=== PATIENT | male | born 1965 | race Caucasian/White ===

== ENCOUNTER 2018-02-11 15:14 | Emergency (ER) | payer MEDICARE, MEDICAID, SELFPAY ==
[2018-02-11 15:14] VITALS: BP 152/86; PULSE 91; RESP 16; TEMP 36.4; O2SAT 94; BMI 31.0
--- NOTE | 2018-02-11 15:17 | RAD_ITS ---
STUDY: X-RAY - RIGHT WRIST REASON FOR EXAM: Pain, injury. TECHNIQUE: 3 view(s) of the wrist were obtained. COMPARISON: None. FINDINGS: Normal visualized distal radius. There is an ossicle adjacent to the ulnar styloid process without demonstrated distal ulnar fracture. There is joint space narrowing of the radiocarpal compartment. Normal distal radioulnar articulation. Normal carpal bones. There is widening of the scapholunate interval and mild DISI deformity. Normal carpometacarpal articulation of the thumb. Normal second through fifth carpometacarpal articulations. Normal visualized metacarpal bones. The soft tissue structures are unremarkable. RAD/Wrist min 3 Views IMPRESSION: Widening of the scapholunate interval and mild DISI deformity suggestive of scapholunate ligament tear. Arthrosis of the radiocarpal compartment of the wrist. Small ossicle adjacent to the ulnar styloid process. No demonstrated recent fracture. Electronically Signed: Jake Wood MD at 16:29 EDT Tel , Service support ,
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
--- NOTE | 2018-02-11 15:17 | RAD_ITS ---
STUDY: X-RAY - RIGHT KNEE REASON FOR EXAM: Pain, injury. TECHNIQUE: 4 view(s) of the knee. COMPARISON: None. FINDINGS: Normal visualized distal femur. There is chronic fracture deformity of the lateral tibial plateau with intact orthopedic screws. Normal proximal tibiofibular articulation. Normal medial femorotibial compartment. There are marginal osteophytes with joint space narrowing of the lateral femorotibial compartment. There are marginal osteophytes without joint space narrowing of the patellofemoral articulation. There is a joint effusion. RAD/Knee 4 or More Views IMPRESSION: Chronic fracture deformity of the lateral tibial plateau with orthopedic hardware. Arthrosis of the lateral femorotibial compartment. Joint effusion. Electronically Signed: Jake Wood MD at 16:24 EDT Tel , Service support ,
[2018-02-11 16:06] VITALS: O2SAT 94
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
== END 2018-02-11 16:35 | disposition home or self-care (01) ==
PROVIDERS: Emergency Provider Emergency Medicine; Family Provider Student in an Organized Health Care Education/Training Program; PCP Student in an Organized Health Care Education/Training Program
DX: S20.212A Contusion of left front wall of thorax, initial encounter (principal); S60.211A Contusion of right wrist, initial encounter; S80.01XA Contusion of right knee, initial encounter; V19.9XXA Pedal cyclist (driver) (passenger) injured in unspecified traffic accident, initial encounter; Y93.55 Activity, bike riding; Y92.9 Unspecified place or not applicable; Y99.9 Unspecified external cause status; M54.9 Dorsalgia, unspecified; G89.29 Other chronic pain; R03.0 Elevated blood-pressure reading, without diagnosis of hypertension; Z72.0 Tobacco use; Z79.899 Other long term (current) drug therapy
CPT/HCPCS: 71101; 73110; 73564; 99282

== ENCOUNTER 2018-11-24 13:58 | Emergency (ER) | payer MEDICARE, MEDICAID, SELFPAY ==
[2018-11-24 13:59] VITALS: BP 160/76; PULSE 93; RESP 20; TEMP 36.8; O2SAT 96; BMI 27.2
--- NOTE | 2018-11-24 14:04 | RAD_ITS ---
STUDY: X-RAY - RIGHT KNEE REASON FOR EXAM: Male, 53 years old. Pain following a fall. TECHNIQUE: 5 view(s) of the knee. COMPARISON: Comparison is made with prior study dated February 11, 2018. FINDINGS: There is evidence of a nondisplaced fracture of the patella. Normal visualized distal femur. Prior screw fixation of the lateral tibial plateau fracture. Normal proximal tibiofibular articulation. There is moderate degenerative arthrosis of the medial femorotibial compartment with moderate joint space narrowing. There is moderate degenerative arthrosis of the lateral femorotibial compartment with moderate joint space narrowing. There is mild degenerative arthrosis of the patellofemoral articulation. Joint effusion. Soft tissue swelling. RAD/Knee 4 or More Views IMPRESSION: Nondisplaced patellar fracture. Joint effusion. Soft tissue swelling. Electronically Signed: Reinier Rodriguez MD at 15:24 EST , Service support ,
[2018-11-24] MEDS: HYDROcodone Bitartrate/Apap 5/325 Tablet PO (14:36)
--- NOTE | 2018-11-24 15:28 | ED.VISSUMM ---
- ER Visit Summary Date of Service: 11/24/18 Chief Complaint: [Injury to right knee] History of Present Illness: The patient is a 53 M [presents to the emergency department complaint of a fall and injury to his right knee that occurred yesterday. Patient states that he slipped on the ice. Patient fell directly onto the right knee. States that he is able to bear some weight. He denies any other injuries. Did not hit his head. No loss of consciousness. He denies any neck pain. Patient rates the pain is severe.] Physical Examination: [HEENT-PERRLA, EOMI. Cranial nerves II through XII grossly intact. TMs clear. Mucous membranes moist. No adenopathy. Cardiovascular-regular rate and rhythm without murmur or ectopy Lungs-clear to auscultation, chest wall stable without crepitus or subcu emphysema Abdomen-normoactive bowel sounds, soft, nontender, no rebound or rigidity, no peritoneal signs. Extremities-intact ?4, normal range of motion, normal pulses. Right knee-patient has diffuse soft tissue swelling and a joint effusion noted. Patient does have some faint bruising to the anterior aspect of the patella with tenderness to palpation over the patella. Ligamentous exam is very difficult given patient has a lot of discomfort and there is significant swelling noted. He is neurovascular intact distally with normal station normal cap refill.] Test Results: [X-rays of the right knee were obtained which showed a nondisplaced patella fracture. Patient had a joint effusion noted. Patient had soft tissue swelling noted.] Emergency Department Course and Treatment: [Patient on arrival was given [place] 1 tablet p.o. however he continued to complain of significant pain. Patient was given a milligram of Dilaudid IM.] Treatment Plan: [Patient will be given a knee immobilizer as well as crutches and referral to orthopedics on-call.] Patient will be given a prescription for Percocet for pain. Patient advised to ice and elevate the extremity. Disposition: Discharged home in stable condition] Impression: [Right patella fracture Mechanical fall] This note was generated with [employer] dictation software. It may contain incorrect words, spelling, and punctuation that were not noted in review of the chart prior to signing ED Disposition - Plan for ED Patient: Referrals: Francois Orellana DO [Primary Care Provider] -
--- NOTE | 2018-11-24 15:31 | ED.DEP ---
ED Disposition - Plan for ED Patient: Instructions: ED Fx Patella Prescriptions: Oxycodone HCl/Acetaminophen [Percocet 5/325] 1 tab PO Q6H PRN PRN 5 Days #20 tab PRN Reason: Pain Referrals: Francois Orellana DO [Primary Care Provider] - Bubba Wright DO [STAFF PHYSICIAN] - 3-5 Days
[2018-11-24] MEDS: HYDROmorphone 1 MG/ML Syringe IM (15:40)
[2018-11-24 16:20] VITALS: BP 119/83; PULSE 72; RESP 15; O2SAT 98
== END 2018-11-24 16:22 | disposition home or self-care (01) ==
LOC: ED 14:44
PROVIDERS: Emergency Provider Emergency Medicine; Family Provider Student in an Organized Health Care Education/Training Program; PCP Student in an Organized Health Care Education/Training Program
DX: S82.001A Unspecified fracture of right patella, initial encounter for closed fracture (principal); W00.0XXA Fall on same level due to ice and snow, initial encounter; Y93.9 Activity, unspecified; Y92.9 Unspecified place or not applicable; Y99.9 Unspecified external cause status; E11.9 Type 2 diabetes mellitus without complications; M10.9 Gout, unspecified; Z72.0 Tobacco use; Z79.84 Long term (current) use of oral hypoglycemic drugs; Z79.82 Long term (current) use of aspirin; Z79.891 Long term (current) use of opiate analgesic; Z79.899 Other long term (current) drug therapy
CPT/HCPCS: 73564; 96372; 99285

== ENCOUNTER 2018-11-28 00:35 | Emergency (ER) | payer MEDICARE, MEDICAID, SELFPAY ==
[2018-11-28 00:37] VITALS: BP 136/79; PULSE 87; RESP 16; TEMP 36.9; O2SAT 98; BMI 27.2
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
[2018-11-28] MEDS: oxyCODONE 5 MG Tablet PO (01:09)
[2018-11-28 01:10] VITALS: RESP 16
== END 2018-11-28 01:15 | disposition home or self-care (01) ==
LOC: ED 00:50
PROVIDERS: Emergency Provider Emergency Medicine; Family Provider Student in an Organized Health Care Education/Training Program; PCP Student in an Organized Health Care Education/Training Program
DX: S82.001A Unspecified fracture of right patella, initial encounter for closed fracture (principal); W19.XXXA Unspecified fall, initial encounter; Y93.9 Activity, unspecified; Y92.9 Unspecified place or not applicable; Y99.9 Unspecified external cause status; I10 Essential (primary) hypertension; Z72.0 Tobacco use; Z79.84 Long term (current) use of oral hypoglycemic drugs; Z79.82 Long term (current) use of aspirin; Z79.899 Other long term (current) drug therapy
CPT/HCPCS: 99282

== ENCOUNTER 2019-01-27 00:12 | Emergency (ER) | payer MEDICARE, MEDICAID, SELFPAY ==
[2019-01-27 00:13] VITALS: BP 146/94; PULSE 102; RESP 22; TEMP 37; O2SAT 97; BMI 27.9
--- NOTE | 2019-01-27 01:08 | ED.DCSUM_ITS ---
- ER Visit Summary Date of Service: 01/27/19 Chief Complaint: Right knee pain History of Present Illness: The patient is a 53 M presenting with right knee pain. Patient states it started yesterday. He has a history of chronic knee pain. He has had previous surgery on his knee. He states he broke his patella in November as well. He has been told he needs a knee replacement but is unable to pay for this. He believes he strained his knee yesterday while moving an air conditioner. He ran out of his gabapentin, has a refill at the pharmacy. He has been taking indomethacin for pain. Physical Examination: Vitals are stable. Patient is afebrile. Alert no acute distress. HEENT exam is unremarkable. Neck is supple. Lungs are clear and equal bilaterally. Heart is regular rate and rhythm. Extremities right knee diffuse tenderness with effusion. He is able to range his knee with no short arc tenderness. No erythema or warmth. Neurovascularly intact distally. Skin is warm and dry. No focal neurologic deficit. Remainder of exam is unremarkable. Emergency Department Course and Treatment: Patient is given morphine, Zofran. Right knee x-ray shows tricompartmental degenerative changes post trauma -ORIF with moderate large effusion. Healing fracture of the nondisplaced patella may be delayed, follow-up examination is recommended. Patient declined knee aspiration. He states he has been told in the past this will cause infection. He is able to ambulate in the ED with his brace and crutches. He is requesting discharge. Advised to follow-up with his orthopedic surgeon. Advised return to the ED for worsening complaints. Disposition: Discharge home Impression: Acute on chronic right knee pain This note was generated with [employer] dictation software. It may contain incorrect words, spelling, and punctuation that were not noted in review of the chart prior to signing ED Disposition - Plan for ED Patient: Instructions: ED Sprain Knee Referrals: Francois Orellana DO [Primary Care Provider] -
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
[2019-01-27] MEDS: morphine 10 MG/ML Syringe IM (01:28)
[2019-01-27] MEDS: Ondansetron 4 MG/2 ML Vial IM (01:28)
--- NOTE | 2019-01-27 02:01 | ED.DEP ---
ED Disposition - Plan for ED Patient: Instructions: ED Sprain Knee Referrals: Francois Orellana DO [Primary Care Provider] -
[2019-01-27 02:08] VITALS: PULSE 88; RESP 16; O2SAT 98
== END 2019-01-27 02:08 | disposition home or self-care (01) ==
LOC: ED 01:28
PROVIDERS: Emergency Provider Emergency Medicine; Family Provider Student in an Organized Health Care Education/Training Program; PCP Student in an Organized Health Care Education/Training Program
DX: M25.561 Pain in right knee (principal); G89.29 Other chronic pain; E11.9 Type 2 diabetes mellitus without complications; Z72.0 Tobacco use; Z79.84 Long term (current) use of oral hypoglycemic drugs; Z79.82 Long term (current) use of aspirin; Z79.899 Other long term (current) drug therapy
CPT/HCPCS: 73564; 96372; 99282; J2405

== ENCOUNTER 2019-10-17 09:33 | Emergency (ER) | payer MEDICARE, MEDICAID, SELFPAY ==
[2019-10-17 09:34] VITALS: BP 166/95; PULSE 78; RESP 20; TEMP 36.4; O2SAT 97; BMI 27.2
--- NOTE | 2019-10-17 09:48 | EKG12_ITS ---
Test Reason : DYSRHYTHMIA Blood Pressure : / mmHG Vent. Rate : 063 BPM Atrial Rate : 063 BPM P-R Int : 196 ms QRS Dur : 080 ms QT Int : 410 ms P-R-T Axes : 006 005 045 degrees QTc Int : 419 ms Normal sinus rhythm Normal ECG Confirmed by JOLANTA LOAIZA, JANICE ([id number]), tape editor TIN MELCHOR ([id number]) on 10/19/2019 9:30:22 AM Referred By: Confirmed By:JANICE STOVER MD
--- NOTE | 2019-10-17 09:51 | ED.DCSUM_ITS ---
History of Present Illness Informant: Patient Narrative: Patient presents with anxiety and shaking. States is been present for the past 16 to 18 hours. States that yesterday he was feeling well until he began having episodes of shaking and feeling very anxious. States that he does have a history of alcoholism. States his last drink was 1 week ago. Patient also states that he used marijuana 2 weeks ago but no other drug abuse. He denies any chest pain, shortness of breath, nausea, vomiting, abdominal pain, head injury. <Shawn Cash - Last Filed: 10/17/19 11:38> <Jeremie Street - Last Filed: 10/17/19 16:22> Chief Complaint: General Illness Capacity - Capacity Assessment Tool Can the patient make a choice & communicate that choice?: Yes Can the patient understand benefits, risks and alternatives?: Yes Can the patient make a logical, rational choice?: Yes Is the choice the patient makes consistent w/ their values?: Yes Is there an impending, emergent risk to the patient?: Yes Does the patient have an Advance Directive?: No <Shawn Cash - Last Filed: 10/17/19 11:38> Past Medical History Prior records reviewed: Yes Smoking Status: Current every day smoker Alcohol: Heavy Drugs: Marijuana <Shawn Cash - Last Filed: 10/17/19 11:38> <Jeremie Street - Last Filed: 10/17/19 16:22> - Allergies and Home Meds Allergies/Adverse Reactions: Allergies No Known Allergies Allergy (Verified 01/27/19 00:15) Primary Care Physician: Francois Orellana DO [Primary Care Provider] - Review of Systems General: Reports: Sweats. Denies: Chills, Fever Eyes: Denies: Visual changes - bilaterally, Diplopia ENT: Denies: Rhinorrhea, Sore throat Cardiovascular: Denies: Chest pain, Palpitations Respiratory: Denies: Dyspnea, Cough, Dyspnea on exertion Gastrointestinal: Denies: Abdominal pain, Nausea, Vomiting, Diarrhea, Melena, Hematochezia Genitourinary: Denies: Dysuria, Hematuria, Frequency Musculoskeletal: Denies: Back pain, Extremity Pain Skin: Denies: Rash, Wounds Neurological: Reports: - - Tremors. Denies: Headache, Weakness, Numbness Psych: Reports: Anxiety <Shawn Cash - Last Filed: 10/17/19 11:38> Physical Exam Vital Signs/Narrative: Vital Signs Temp Pulse Resp BP Pulse Ox 10/17/19 09:34 97.6 F L 78 20 H 166/95 H 97 Inital Vital Signs reviewed: Yes General: Well nourished, Well developed, No Acute Distress Head: Normocephalic, Atraumatic Eyes: Perrl, EOMI ENT: Moist mucous membranes, No rhinorrhea Neck: Supple, Nontender Cardiovascular: Regular rhythm, No murmurs, Tachycardia Respiratory: No distress, CTA bilaterally, Chest nontender Abdomen: Soft, Nontender, Nondistended, Normal bowel sounds Back: Nontender, Normal Inspection Extremities: Nontender, No edema Skin: Normal color, No rash, Rash Neurological: Alert, Oriented x3, Cranial nerves II-XII grossly intact, Normal Strength, Normal Sensation Psychological: Normal affect, Normal Mood <Shawn Cash - Last Filed: 10/17/19 11:38> Diagnostic/Tx/Re-eval Chest X-Ray - ED: 1 View, No Acute Disease Clinical Impression(s) from Imaging Studies Chest X-Ray 10/17/19 09:53 IMPRESSION: No evidence of acute focal infiltrate. Electronically Signed: Melida Hagan MD at 11:05 EST Tel , Service support , Clinical Impression(s) from Imaging Studies Chest X-Ray 10/17/19 09:53 IMPRESSION: No evidence of acute focal infiltrate. Electronically Signed: Melida Hagan MD at 11:05 EST Tel , Service support , Laboratory Tests 10/17/19 10/17/19 10/17/19 Range/Units 10:00 10:00 10:00 WBC 8.3 (4.4-11.0) K/mm3 RBC 5.03 (4.6-6.2) M/mm3 Hgb 16.2 (13.0-16.5) g/dL Hct 46.4 (40-54) % MCV 92.2 (80-94) fL MCH 32.2 H (27.0-32.0) pg MCHC 34.9 (32-36) g/dL RDW Std Deviation 41.3 (35.1-43.9) fl RDW Coeff of Amy 12.1 (11.6-14.6) % Plt Count 199 (150-450) K/mm3 MPV 9.5 (6.2-12.0) fl Immature Gran % (Auto) 0.500 (0.0-0.9) % Neut % (Auto) 58.0 (47-70) % Lymph % (Auto) 28.3 (19-41) % Owen % (Auto) 8.3 (0-10) % Eos % (Auto) 4.2 (0-5) % Baso % (Auto) 0.7 (0-1) % Absolute Neuts (auto) 4.8 (2.0-7.7) X10^3/uL Absolute Lymphs (auto) 2.36 (0.83-4.51) X10^3/uL Nucleated RBC % 0 (0-5) % Sodium 137 (136-145) mmol/L Potassium 3.5 (3.5-5.1) mmol/L Chloride 103 (98-107) mmol/L Carbon Dioxide 26.0 (21.0-32.0) mmol/L Anion Gap 8 (5-15) BUN 15 (7-18) mg/dL Creatinine 1.10 (0.70-1.30) mg/dL Estim Creat Clear Calc 77.42 ml/min Est GFR (MDRD) Af Amer 89 (>60) mL/min Est GFR (MDRD) Non-Af 74 (>60) mL/min BUN/Creatinine Ratio 13.6 (10-20) RATIO Glucose 205 H (74-106) mg/dL Calcium 9.0 (8.5-10.1) mg/dL Total Bilirubin 0.30 (0.20-1.00) mg/dL AST 26 (15-37) U/L ALT 49 (16-61) U/L Alkaline Phosphatase 88 (45-117) U/L Troponin I < 0.015 (<0.045) ng/mL Total Protein 7.5 (6.4-8.2) g/dL Albumin 3.6 (3.2-5.0) g/dL Globulin 3.9 (2.2-4.2) g/dL Albumin/Globulin Ratio 0.9 (0.9-2.4) RATIO Lipase 227 (73-393) U/L Ethyl Alcohol < 3.0 mg/dL Impressions Chest X-Ray 10/17/19 09:53 IMPRESSION: No evidence of acute focal infiltrate. Electronically Signed: Melida Hagan MD at 11:05 EST Tel , Service support , 10/17/19 09:53 Chest 1 View (Portable) [RAD] Stat Laboratory Results 10/17/19 10/17/19 10/17/19 10:00 10:00 10:00 WBC 8.3 RBC 5.03 Hgb 16.2 Hct 46.4 MCV 92.2 MCH 32.2 H MCHC 34.9 RDW Std Deviation 41.3 RDW Coeff of Amy 12.1 Plt Count 199 MPV 9.5 Immature Gran % (Auto) 0.500 Neut % (Auto) 58.0 Lymph % (Auto) 28.3 Owen % (Auto) 8.3 Eos % (Auto) 4.2 Baso % (Auto) 0.7 Absolute Neuts (auto) 4.8 Absolute Lymphs (auto) 2.36 Nucleated RBC % 0 Sodium 137 Potassium 3.5 Chloride 103 Carbon Dioxide 26.0 Anion Gap 8 BUN 15 Creatinine 1.10 Estim Creat Clear Calc 77.42 Est GFR (MDRD) Af Amer 89 Est GFR (MDRD) Non-Af 74 BUN/Creatinine Ratio 13.6 Glucose 205 H Calcium 9.0 Total Bilirubin 0.30 AST 26 ALT 49 Alkaline Phosphatase 88 Troponin I < 0.015 Total Protein 7.5 Albumin 3.6 Globulin 3.9 Albumin/Globulin Ratio 0.9 Lipase 227 Ethyl Alcohol < 3.0 - Rhythm Strip Rhythm Strip: Sinus Rhythm Rate: 63 - EKG Initial EKG Interpretation: Sinus Rhythm - Normal sinus rhythm at 63 bpm. MI interval of 196 ms. QTC of 419 ms. No evidence of ST elevation or depression at this time. - Medical Decision Making Patient having tremors upon arrival. Hypertensive and tachycardic. Concern for alcohol withdrawal. Patient did admit to me that he had been taking benzod iazepines which she had been purchasing illegally. This is likely why the patient has not had withdrawal for the week since he has had alcohol. I did give him 1 mg of Ativan as well as 1 L of normal saline. Other lab work within normal limits including an EKG and a chest x-ray. I also gave the patient multivitamin, folic acid, thiamine. After extensive discussion with the patient he wishes to leave AGAINST MEDICAL ADVICE. I did discuss with him the risk. I feel he has appropriate capacity. Offer him admission. I did ask him to return at any time for reevaluation. Patient left AMA. <Shawn Cash - Last Filed: 10/17/19 11:38> - Medical Decision Making Patient presents with shaking just not feeling very well. He has not had an alcoholic drink for a week but he has been buying benzodiazepines off a friend.Patient was seen in conjunction with Dr. Cash. Patient wishes to leave and does not wish any further treatment. My opinion he has the capacity to make this decision. I will I disagree with that is his right. I performed a history and physical examination of the patient and discussed management plan with the physician speech language pathologist assistant. I reviewed the physician speech language pathologist assistant's note and agree with the documented findings and plan of care. Jeremie Street DO, MS, FACEP <Jeremie Street - Last Filed: 10/17/19 16:22> ED Disposition <Shawn Cash - Last Filed: 10/17/19 11:38> <Jeremie Street - Last Filed: 10/17/19 16:22> - Plan for ED Patient: Disposition: Home or Assisted Living Diagnosis: Alcohol abuse with alcohol-induced disorder Instructions: Alcohol Withdrawal Referrals: Francois Orellana DO [Primary Care Provider] -
--- NOTE | 2019-10-17 09:53 | RAD_ITS ---
STUDY: X-RAY CHEST REASON FOR EXAM: Male, 54 years old. GENERAL ILLNESS TECHNIQUE: Single AP portable view of the chest. COMPARISON: February 11, 2018 FINDINGS: The lungs are clear and expanded. There is no demonstrated pleural abnormality. Normal size heart. Normal mediastinum and odette. Normal visualized pulmonary arteries. Normal visualized aortic arch and descending thoracic aorta. There are diffuse degenerative changes of the visualized thoracic spine. There are nonacute multiple left-sided rib fractures that appear acute on the prior study. There is no demonstrated abnormality of the visualized soft tissue structures of the upper abdomen. RAD/Chest 1 View (Portable) IMPRESSION: No evidence of acute focal infiltrate. Electronically Signed: Melida Hagan MD at 11:05 EST Tel , Service support ,
[2019-10-17 10:08] LABS: Absolute Lymphocyte Count 2.36 X10^3/uL (0.83-4.51); Absolute Neutrophil Count 4.8 X10^3/uL (2.0-7.7); Basophil# 0.06 X10^3/uL; Basophil% 0.7 % (0-1); Eosinophil# 0.35 X10^3/uL; Eosinophils% 4.2 % (0-5); Hematocrit 46.4 % (40-54); Hemoglobin 16.2 g/dL (13.0-16.5); Lymphocyte # 2.36 X10^3/ul (4.0); Lymphocyte % 28.3 % (19-41); Mean Corp Hgb Conc 34.9 g/dL (32-36); Mean Corpuscular Hgb 32.2 pg (27.0-32.0); Mean Corpuscular Volume 92.2 fL (80-94); Mean Platelet Vol. 9.5 fl (6.2-12.0); Monocyte# 0.69 X10^3/uL; Monocyte% 8.3 % (0-10); NRBC Flagged by Analyzer 0 % (0-5); Neutrophil # 4.83 X10^3/uL (2.7-7.7); Platelet Count 199 K/mm3 (150-450); RBC Distribution Width CV 12.1 % (11.6-14.6); RBC Distribution Width SD 41.3 fl (35.1-43.9); Red Blood Count 5.03 M/mm3 (4.6-6.2); White Blood Count 8.3 K/mm3 (4.4-11.0)
[2019-10-17] MEDS: 0.9% Normal Saline 1,000 ML 1000 ML IV (10:14)
[2019-10-17] MEDS: LORazepam 2 MG/ML Syringe 1 MG IV (10:15)
[2019-10-17 10:27] LABS: ALB/GLOB Ratio 0.9 RATIO (0.9-2.4); AST(SGOT) 26 U/L (15-37); Alanine Aminotransfer ALT/SGPT 49 U/L (16-61); Albumin, Serum 3.6 g/dL (3.2-5.0); Alkaline Phosphatase 88 U/L (45-117); Anion Gap 8 (5-15); BUN 15 mg/dL (7-18); BUN/Creat Ratio 13.6 RATIO (10-20); Chloride 103 mmol/L (98-107); EST Glomerular Filtration Rate 74 mL/min (>60); Est Glom Filt Rate - Afr Amer 89 mL/min (>60); Estimated Creatinine Clearance 77.42 ml/min; Globulin 3.9 g/dL (2.2-4.2); Glucose 205 mg/dL (74-106); Lipase 227 U/L (73-393); Potassium 3.5 mmol/L (3.5-5.1); Protein, Total 7.5 g/dL (6.4-8.2); Sodium Level 137 mmol/L (136-145)
[2019-10-17 10:34] LABS: Alcohol, Blood (Medical)-Serum < 3.0 mg/dL
[2019-10-17] MEDS: Thiamine Hydrochloride 100 MG Tablet PO (11:11)
[2019-10-17] MEDS: Multivitamins,Therapeutic Tablet 1 TABLET PO (11:11)
[2019-10-17] MEDS: Folic Acid 1 MG Tablet PO (11:11)
[2019-10-17 11:12] VITALS: BP 124/101; PULSE 62; RESP 18; O2SAT 97
--- NOTE | 2019-10-17 11:50 | ED.RN ---
DR DENT IN TO TALK WITH PT. PT REFUSES TO STAY. AMA FORMS GIVEN
== END 2019-10-17 12:15 | disposition home or self-care (01) ==
PROVIDERS: Emergency Provider Emergency Medicine; Family Provider Student in an Organized Health Care Education/Training Program; PCP Student in an Organized Health Care Education/Training Program
DX: F10.19 Alcohol abuse with unspecified alcohol-induced disorder (principal); Z53.21 Procedure and treatment not carried out due to patient leaving prior to being seen by health care provider; F13.90 Sedative, hypnotic, or anxiolytic use, unspecified, uncomplicated; F12.90 Cannabis use, unspecified, uncomplicated; F17.200 Nicotine dependence, unspecified, uncomplicated
CPT/HCPCS: 71045; 80053; 80320; 83690; 84484; 85025; 93005; 96361; 96374; 99285; A4216; G0480

== ENCOUNTER → 2023-07-23 | Outpatient (CLI) | payer MEDICARE, MEDICAID, SELFPAY ==
--- NOTE | 2023-07-23 07:36 | US_ITS ---
INDICATION: SWELLING -- RT UPPER BACK AREA OF PALP LUMP EXAMINATION: Ultrasound US Chest TECHNIQUE: [place]cia scale images were obtained of the right chest. COMPARISON: No relevant prior comparison study available FINDINGS: Targeted evaluation in the region of concern shows no definite mass. There is a structure which is likely a lymph node identified which measures 0.7 x 1 x 0.3 cm. US/Chest IMPRESSION: No suspicious mass identified. Possible lymph node seen in the region of concern. Electronically Signed: Ronald Gloria MD at 19:55 EDT ,
== END | disposition home or self-care (01) ==
PROVIDERS: PCP Student in an Organized Health Care Education/Training Program; Visit Provider Nurse Practitioner Family
DX: R22.2 Localized swelling, mass and lump, trunk (principal)
CPT/HCPCS: 76604

== ENCOUNTER → 2023-08-28 | Outpatient (CLI) | payer MEDICARE, MEDICAID, SELFPAY ==
[2023-08-28 13:45] LABS: Albumin, Serum 3.8 g/dL (3.2-5.0); BUN 20 mg/dL (7-18); BUN/Creat Ratio 12.1 RATIO (10-20); Calcium,Total 9.6 mg/dL (8.5-10.1); Chloride 98 mmol/L (98-107); Creatinine, Serum 1.65 mg/dL (0.70-1.30); EST Glomerular Filtration Rate 46 mL/min (>60); Est Glom Filt Rate - Afr Amer 55 mL/min (>60); Glucose 82 mg/dL (74-106); Phosphorus 3.6 mg/dL (2.5-4.9); Potassium 3.1 mmol/L (3.5-5.1); Sodium Level 138 mmol/L (136-145); Uric Acid 6.1 mg/dL (3.5-7.2)
[2023-08-28 14:06] LABS: Microalbumin,Random Urine 12.3 mg/L (NO RANGE EST.); Microalbumin:Creatinine Ratio 3.6 mg/g CRE (<30 mg/g CRE)
== END | disposition home or self-care (01) ==
LOC: POLAB3 11:20
PROVIDERS: PCP Student in an Organized Health Care Education/Training Program; Visit Provider Internal Medicine Nephrology
DX: E11.22 Type 2 diabetes mellitus with diabetic chronic kidney disease (principal); N18.31 Chronic kidney disease, stage 3a
CPT/HCPCS: 36415; 80069; 82043; 82570; 84550

== ENCOUNTER → 2023-09-03 | Outpatient (CLI) | payer MEDICARE, MEDICAID, SELFPAY ==
[2023-09-03 12:55] LABS: Magnesium 2.9 mg/dL (1.6-2.6); Potassium 3.1 mmol/L (3.5-5.1)
== END | disposition home or self-care (01) ==
LOC: POLAB3 11:58
PROVIDERS: PCP Student in an Organized Health Care Education/Training Program; Visit Provider Internal Medicine Nephrology
DX: E87.6 Hypokalemia (principal)
CPT/HCPCS: 36415; 83735; 84132

== ENCOUNTER → 2024-05-17 | Outpatient (CLI) | payer MEDICARE, MEDICAID, SELFPAY ==
[2024-05-17 07:29] LABS: BUN 27 mg/dL (7-18); BUN/Creat Ratio 16.1 RATIO (10-20); Chloride 110 mmol/L (98-107); Creatinine, Serum 1.68 mg/dL (0.70-1.30); EST Glomerular Filtration Rate 44 mL/min (>60); Est Glom Filt Rate - Afr Amer 54 mL/min (>60); Glucose 103 mg/dL (74-106); Phosphorus 3.1 mg/dL (2.5-4.9); Potassium 4.3 mmol/L (3.5-5.1); Sodium Level 141 mmol/L (136-145)
[2024-05-17 08:19] LABS: Microalbumin,Random Urine 6.6 mg/L (NO RANGE EST.)
== END | disposition home or self-care (01) ==
LOC: LAB 06:27
PROVIDERS: PCP Student in an Organized Health Care Education/Training Program; Referring Provider Internal Medicine Nephrology; Visit Provider Internal Medicine Nephrology
DX: E11.22 Type 2 diabetes mellitus with diabetic chronic kidney disease (principal); N18.31 Chronic kidney disease, stage 3a
CPT/HCPCS: 36415; 80069; 82043; 82570

== ENCOUNTER 2024-09-03 08:08 | Emergency (ER) | payer MEDICARE, MEDICAID, SELFPAY ==
[2024-09-03 08:09] VITALS: BP 161/122; PULSE 76; RESP 15; TEMP 36.2; O2SAT 100
[2024-09-03 08:20] VITALS: BMI 20.9
--- NOTE | 2024-09-03 08:40 | US_ITS ---
INDICATION: chronic flank pain, hx of renal cysts EXAMINATION: Ultrasound US Kidney(s) complete (eg, kidneys and bladder) TECHNIQUE: [place]cia scale and color doppler images were obtained of the kidneys. COMPARISON: January 18, 2013 FINDINGS: RIGHT KIDNEY: The right kidney measures 10.2 cm in length. There is no hydronephrosis. There is a minimally complex 1.1 x 1.1 x 1.0 cm cyst with no internal vascularity. No shadowing calculus or perinephric collection is demonstrated. LEFT KIDNEY: The left kidney measures 10.9 cm in length. There is no hydronephrosis. There is a simple 2.9 x 2.8 x 3.3 cm cyst. No shadowing calculus or perinephric collection is demonstrated. URINARY BLADDER: No acute abnormality. The visualized prostate gland is enlarged measuring up to 5.1 cm in the transverse dimension. US/Kidney and Bladder IMPRESSION: No hydronephrosis. Bilateral renal cysts. Enlarged prostate gland. Electronically Signed: Ramandeep Castro MD at 10:16 EST ,
[2024-09-03 08:51] LABS: Mucous, Urine 0 SEEN /hpf (<or=2+); Red Blood Cells-Urine 0 SEEN /hpf (0-5)
[2024-09-03 08:54] LABS: Glucose, Dipstick Normal (Normal); Ketone-Dipstick 5 mg/dl (Negative); Leukocyte Esterase-Dipstick 25 /ul (Negative); Nitrite-Dipstick Negative (Negative); Occult Blood-Urine Negative /ul (Negative); Protein-Dipstick 30 mg/dl (Negative); Urine Bilirubin Dipstick Negative (Negative); Urine Urobilinogen 1 mg/dl (Normal)
[2024-09-03 09:02] LABS: Color, Urine Yellow (Yellow); Urine Clarity Clear (Clear)
--- NOTE | 2024-09-03 09:12 | EX.ED.DYSGE1 ---
HPI History of Present Illness Chief Complaint: Flank Pain Informant: patient Narrative Narrative: Patient is a 58-year-old male with history of renal cyst, CKD, diabetes mellitus, gout and prior alcohol abuse presenting with right flank pain. Patient states that he has been having worsening pain in his right flank area for 1 to 2 months but it has been there for months before that. He knows that he has multiple cyst on his kidneys. He denies any acute change today. He states that it radiates to his bilateral flanks and groins and into his abdomen. Notes he has appointment on this coming Friday to see a new primary care doctor to [facility] (Dr. Ventura) and I wanted to get evaluated and have his results forwarded to her. He states that he takes aspirin and gabapentin which does not help with the pain. He denies any urinary symptoms such as frequency, urgency or hematuria. He denies any pain going down into his legs. Denies any associated shoulder pain, chest pain or difficulty breathing. No associated nausea or vomiting. No fever or chills. No change in his bowel movements. Denies any new injuries or trauma. [facility] Medical History Kidney disease Diabetes Kidney cysts Home Medications ?Medication ?Instructions ?Recorded ?Last Taken ?Type indomethacin 25 mg capsule 25 mg PO DAILY PRN Pain 02/11/18 Unknown History aspirin 325 mg tablet 325 mg PO DAILY 11/24/18 Unknown History metformin 500 mg tablet 500 mg PO PRN PRN HYPERGLYCEMIA 11/24/18 Unknown History Allergy/AdvReac Type Severity Reaction Status Date / Time No Known Allergies Allergy Verified 09/03/24 08:11 Social History Smoking Status: Former smoker ROS ROS ED Constitutional Constitutional ED: Denies chills or fever(s) Cardiovascular Cardiovascular: Denies chest pain Respiratory/Chest Respiratory/Chest: Denies cough or dyspnea Gastrointestinal Gastrointestinal: Denies abdominal pain, constipation, diarrhea, nausea or vomiting Genitourinary Genitourinary ED: Denies dysuria, hematuria or urinary frequency Musculoskeletal Musculoskeletal: Reports back pain and other Details: Right lower back pain Integumentary Denies rash Neurologic Neurologic: Denies paresthesias or weakness EXAM Physical Exam Const Vital Signs: 09/03/24 08:09 11/15/24 10:08 Temperature 97.1 F L Temperature Source Oral Pulse Rate 76 54 L Respiratory Rate 15 16 Blood Pressure 161/122 H 121/84 H Blood Pressure Mean 135 96 Pulse Ox 100 99 Oxygen Delivery Method Room Air Room Air Positive well nourished and well developed General Appearance ED: well developed and NAD HEENT Reports moist mucous membranes Neck supple and no JVD Chest Wall inspection of chest normal and palpation of chest normal Resp normal respiratory effort and clear to auscultation bilaterally Cardio regular rate and regular rhythm GI normal to inspection, nondistended, normoactive bowel sounds and non-tender Palpation: Negative for guarding or mass Back/Spine no CVA tenderness Back/Spine Narrative: Patient points to his right lower lumbar paraspinal region as his area of pain. Very mild tenderness on direct palpation. Negative straight leg test bilaterally. Thoracic Spine / Upper Back: Negative for thoracic spinal tenderness Lumbar Spine / Lower Back: Negative for lumbar spinal tenderness Extremity normal to inspection General Extremety ED: Negative for tenderness Neuro oriented x3 and no sensory deficits noted Neuro Narrative: 5/5 strength with plantar and dorsiflexion of the legs. Sensorium / Orientation: alert Motor Exam: strength 5/5 throughout; Negative for general weakness Psych Psych Narrative: Patient is cooperative but has an angry affect. He has poor eye contact. He consistently makes comments about how were not going to help him anyway. Skin no rashes or lesions noted and no wounds MDM MDM MDM Narrative Medical decision making narrative: Patient is evaluated for continued right low back pain. He is worried about renal cyst. This seems to be more of a chronic issue and no acute worsening today. Differential includes muscle skeletal pain, muscle spasms, hydronephrosis, pyelonephritis and renal colic. Pain is not really consistent with renal colic, suspicion for ureterolithiasis causing pain. Patient's vital signs normal emergency room. Overall patient is well-appearing. He ambulates with a steady gait. Urinalysis obtained which is most consistent some dehydration and contamination. There is 5 ketones, 5-10 white blood cells, 10-25 squamous epithelial cells, 2+ bacteria and 0-5 hyaline cast. He is not claiming urinary symptoms and does not any fever with months of this back pains I do not think this is an acute pyelonephritis/kidney infection. Renal ultrasound shows bilateral renal cyst with no hydronephrosis and the large prostate gland. Patient is given a copy of his results. Patient was offered Toradol or other pain medication while in the emergency room but had declined. Was then offered prescription for muscle relaxer but again declined. Patient is given a copy of his ultrasound results but does not want a wait on his discharge paperwork prior to leaving the ER. Will follow-up with his new primary care doctor at [facility] next week. Encouraged return to the emergency room should have progression or worsening of her symptoms. At this time have a low suspicion for an acute medical or surgical abnormality/emergency and think that patient can safely follow-up outpatient as this is more of a chronic condition. Lab Data Labs: Laboratory Results - last 24 hr 09/03/24 08:46 Urine Color Yellow Urine Clarity Clear Urine pH 6.0 Ur Specific Teller 1.020 Urine Protein 30 H Urine Glucose (UA) Normal Urine Ketones 5 H Urine Occult Blood Negative Urine Nitrite Negative Urine Bilirubin Negative Urine Urobilinogen 1 H Ur Leukocyte Esterase 25 H Urine RBC 0 SEEN Urine WBC 5-10 SEEN Ur Squamous Epith Cells 10-25 SEEN Urine Bacteria 2+ Hyaline Casts 0-5 SEEN Urine Mucus 0 SEEN Radiography Diagnostic Testing: Clinical Impression(s) from Imaging Studies Renal Ultrasound 09/03/24 08:40 IMPRESSION: No hydronephrosis. Bilateral renal cysts. Enlarged prostate gland. Electronically Signed: Ramandeep Castro MD at 10:16 EST , Discharge Plan Triage Chief Complaint: Flank Pain ED Provider: Delphine Bliss Dx/Rx/DC Orders Instructions: ED Flank Pain, Uncertain Cause Prescriptions: No Action indomethacin 25 MG capsule 25 mg PO DAILY PRN (Reason: Pain) Patient Comments: FOR GOUT metformin 500 MG tablet 500 mg PO PRN PRN (Reason: HYPERGLYCEMIA) aspirin 325 MG tablet 325 mg PO DAILY Primary Care Provider: Jacquelyn Cote Referrals: Jacquelyn Cote PA [Primary Care Provider] - Activity Restrictions/Additional Instructions: Your workup did show benign-appearing cyst on your ultrasound and some mild dehydration. Please drink more water. Follow-up with your primary care doctor. Print Language: Portuguese Disposition Disposition: Home, Self Care Discharge Date/Time: 09/03/24 10:42
[2024-09-03 09:16] LABS: Bacteria 2+ /hpf (None Seen); Hyaline Cast 0-5 SEEN /lpf (0-5); Squamous Epithelial Cells - UA 10-25 SEEN /hpf (0-5); White Blood Cells 5-10 SEEN /hpf (0-5)
[2024-09-03 10:08] VITALS: BP 121/84; PULSE 54; RESP 16; O2SAT 99
== END 2024-09-03 10:42 | disposition home or self-care (01) ==
LOC: ED 08:50
PROVIDERS: Emergency Provider Emergency Medicine; PCP Physician Assistant; Visit Provider Emergency Medicine
DX: R10.9 Unspecified abdominal pain (principal); E11.22 Type 2 diabetes mellitus with diabetic chronic kidney disease; N28.1 Cyst of kidney, acquired; N18.9 Chronic kidney disease, unspecified; Z87.891 Personal history of nicotine dependence
CPT/HCPCS: 76770; 81001; 99282

== ENCOUNTER → 2024-09-07 | Outpatient (CLI) | payer MEDICARE, MEDICAID, SELFPAY ==
--- NOTE | 2024-09-07 12:20 | RAD_ITS ---
STUDY: X-RAY - THORACIC SPINE REASON FOR EXAM: Male, 58 years old. BACK PAIN TECHNIQUE: 3 view(s) of the thoracic spine were obtained. COMPARISON: None. FINDINGS: Normal kyphosis of the thoracic spine. There is no substantial scoliosis. There is multilevel endplate spondylosis of the thoracic vertebrae. There is multilevel disc space narrowing of the thoracic spine. The soft tissue structures are unremarkable. RAD/Thoracic Spine 2 Views IMPRESSION: Mild degenerative disc disease lower thoracic spine. Electronically Signed: Vadim Chacko MD at 9:19 EST ,
--- NOTE | 2024-09-07 12:20 | RAD_ITS ---
STUDY: X-RAY - RIGHT KNEE REASON FOR EXAM: Male, 58 years old. Pain, decreased range of motion TECHNIQUE: 4 view(s) of the knee. COMPARISON: None. FINDINGS: The bones are diffusely demineralized. Surgical hardware in the proximal tibia free of complication. Normal proximal tibiofibular articulation. Normal medial femorotibial compartment. There is severe degenerative arthrosis of the lateral femorotibial compartment with severe joint space narrowing, along with subchondral sclerosis and cyst formation in the lateral femoral condyle and lateral tibial plateau.. There is moderate degenerative arthrosis of the patellofemoral articulation. There is nonspecific soft tissue swelling. RAD/Knee 4 or More Views IMPRESSION: Severe lateral compartment arthrosis with subchondral changes Moderate patellofemoral joint arthrosis Surgical hardware in the proximal tibia free of complication No demonstrated fracture Electronically Signed: Mello Cuenca MD at 9:20 EST ,
--- NOTE | 2024-09-07 12:20 | RAD_ITS ---
STUDY: X-RAY - LUMBAR SPINE REASON FOR EXAM: Male, 58 years old. BACK PAIN TECHNIQUE: 2 view(s) of the lumbar spine were obtained. COMPARISON: None FINDINGS: Normal lumbar lordosis. Mild levoscoliosis centered at L2. There is a normal alignment of the vertebrae. There is multilevel endplate spondylosis of the lumbar vertebrae. There is multi-level degenerative disc disease with multi-level disc space narrowing. There is multilevel facet hypertrophy. The soft tissue structures are unremarkable. RAD/Lumbar Spine 2 or 3 Views IMPRESSION: Mild levoscoliosis with degenerative disc disease. Electronically Signed: Vadim Chacko MD at 9:18 EST ,
== END | disposition home or self-care (01) ==
LOC: RAD 12:16
PROVIDERS: PCP Physician Assistant; Referring Provider Physician Assistant; Visit Provider Physician Assistant
DX: M54.50 Low back pain, unspecified (principal); M54.6 Pain in thoracic spine; R22.41 Localized swelling, mass and lump, right lower limb; M25.561 Pain in right knee
CPT/HCPCS: 72070; 72100; 73564

== ENCOUNTER → 2024-12-31 | Outpatient (CLI) | payer MEDICARE, MEDICAID, SELFPAY ==
[2024-12-31 07:34] LABS: Mucous, Urine 0 SEEN /hpf (<or=2+)
[2024-12-31 08:42] LABS: Albumin, Serum 4.7 g/dL (3.4-4.8); Anion Gap 14 (5-15); BUN 24 mg/dL (4-19); BUN/Creat Ratio 16.1 RATIO (10-20); Calcium,Total 9.4 mg/dL (7.6-11.0); Carbon Dioxide 19.6 mmol/L (21.0-32.0); Chloride 106 mmol/L (98-108); EST Glomerular Filtration Rate 53 (>60); Glucose 101 mg/dL (70-99); Magnesium 2.1 mg/dL (1.5-2.2); Phosphorus 2.9 mg/dL (2.7-4.5); Potassium 4.4 mmol/L (3.3-5.1); Sodium Level 139 mmol/L (133-145); Uric Acid 6.7 mg/dL (3.5-7.2); Vitamin D,25 Hydroxy 28.7 ng/mL (30-100)
[2024-12-31 08:45] LABS: Color, Urine Yellow (Yellow); Glucose, Dipstick Normal (Normal); Ketone-Dipstick 5 mg/dl (Negative); Leukocyte Esterase-Dipstick Negative /ul (Negative); Nitrite-Dipstick Negative (Negative); Occult Blood-Urine Negative /ul (Negative); Protein-Dipstick 30 mg/dl (Negative); Urine Bilirubin Dipstick Negative (Negative); Urine Clarity Clear (Clear); Urine Urobilinogen 1 mg/dl (Normal)
[2024-12-31 08:58] LABS: Red Blood Cells-Urine 0-5 SEEN /hpf (0-5); White Blood Cells 0-5 SEEN /hpf (0-5)
[2024-12-31 08:59] LABS: Bacteria 1+ /hpf (None Seen); Hyaline Cast 0-5 SEEN /lpf (0-5); Squamous Epithelial Cells - UA 0-5 SEEN /hpf (0-5)
[2024-12-31 09:41] LABS: Hemoglobin A1c 5.7 % (<=5.6)
[2024-12-31 13:01] LABS: Microalbumin,Random Urine 27.4 mg/L (NO RANGE EST.); Microalbumin:Creatinine Ratio 78.1 mg/g CRE; Protein:Creat Ratio 71 mg/g CRE (0-200)
== END | disposition home or self-care (01) ==
PROVIDERS: PCP Physician Assistant
DX: N18.31 Chronic kidney disease, stage 3a (principal)
CPT/HCPCS: 36415; 80069; 81001; 82043; 82306; 82570; 83036; 83735; 84156; 84550